=== PATIENT | female | born 1990 | race African-American/Black ===

== ENCOUNTER 2018-03-24 14:22 | Inpatient (IN) | payer OTHER, MEDICAID ==
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
[2018-03-24 19:22] LABS: PLATELET COUNT 261 10^3/uL (150-400)
[2018-03-24] MEDS ORDERED: POTASSIUM CL 20 MEQ/15 ML UDCUP PO ONE (19:38)
[2018-03-24] MEDS ORDERED: OLANZapine 10 MG/2 ML VIAL ONE (22:26)
[2018-03-24] MEDS ORDERED: OLANZapine 10 MG/2 ML VIAL IM ONE (22:35)
--- NOTE | 2018-03-24 23:04 | ASMTTLCEVL ---
[facility] Evaluation - Basic Information Evaluation Start Date and 03/24/2018 08:00 PM Time Hospital Status Answers: M1 Hold 72-hr M1 Hold Start Date 03/24/2018 04:54 PM and Time Patient statement Notes: "I feel like I'm at a crossroads, if I tell the truth my father will kill himself and I don't want him to " "My dad is running an experiment with his children and I'm the sacrificial pagan." Narrative Notes: PT is a 27 year old , employed single female. [facility]. [place] and did not know her name. PT's family was notified that she was here and her father, mother, brother and sister were present for part of this evaluation.Father of patient reported that PT moved back in with the family a few months ago after she broke up with her boyfriend of five years. She was upset, but going to work and interacting with the family. Over the past 2-3 days she had not been sleeping or eating and was up singing at 4 in the morning. PT reported that she believes she her father is a part of an experiment that he is using on his children but she did not say what he was doing. during the evaluation PT kept herself covered by a blanket, and was polite and articulate but did not feel safe uncovering her head. She stated that he has been hearing bagpipes that play Hitler's march and other voices and sound triggers that she didn't want to discuss. PT was unable to fill out BDI and BSS,she asked if she could fill them out tomorrow. PT's father said when she turned 22 he gave her a marijuana cookie and she "lost it" and this is like that time, but she didn't have any mariuajuna. Diagnosis History Notes: No diagnosis hisotry, [facility]. Prior suicide attempts Notes: Denies Prior hospitalizations Notes: None Treatment Responses Notes: None History of violence Notes: Denies Therapist: none Medications (name, dosage, route, freq uency) Notes: None Allergies/Reaction Notes: None Sleep Notes: Not sleeping much last 2-3 days, prior to that 8 hours. Appetite Notes: No appetite last 3-4 days, prior to that normal. Medical/Surgical history Notes: Denied any surgeries or other medical history. Substance use history (frequency, intensity, his tory, duration) Notes: Pt reported she on occasion has a beer. Does not smoke marijuana or take any other substances Family composition Notes: LIves with her younger brother and sister and her mother and father. Need for family Answers: Yes participation in patient's care Family psychiatric/substance abuse history Notes: Pt reported as did her father that he uses marijuana Also reported that mother heard voices but used meditation and it the voices stopped. Developmental history Notes: Normal Abuse concerns Answers: None Marital status/children Notes: Single no children. Living situation Notes: LIves with her younger brother and sister and her mother and father. Sexual history/orientation Notes: Heterosexual Peer support/family strengths Notes: PT reports she has one best friend. PT is smart, has a sense of humor, and is patient. Education level/history Notes: 3 years of college. Work history Notes: Works at a [employer] in [place]. Notes: None Legal Notes: Denies Episcopal/Spiritual Notes: Said she was raised Baptism. Leisure Notes: Said she likes music. Collateral Notes: Father was present for part of evaluation and provided information about PT's current status. [facility] Evaluation - Mental Status Exam Appearance: Answers: Bizarre Eye Contact: Answers: Absent Avoiding Mood: Answers: Irritable Sad Affect: Answers: Anxious Confused Guarded Behavior: Answers: Fearful Guarded Suspicious Speech: Answers: Flight of Ideas Thought Process: Answers: Tangential Insight: Answers: Poor Judgement: Answers: Poor Depression Answers: Crying Spells Signs/Symptoms: Worthlessness Anxiety Signs/Symptoms Answers: Panic Attacks Hallucinations: Answers: Auditory Delusions: Answers: Paranoid Ideation Pt reported to have Answers: No suicidal/self-injuring ideation/behavior? Pt reported to have Answers: No aggression/assault ideation/behavior? Pt reported to be making Answers: No aggression/assault threats? Pt exhibits inability to Answers: Yes care for self/grave disability? Ideation/behavior is Answers: No chronic? Patient has a specific Answers: No plan? Pt has access to means to Answers: No execute the plan? Ideation involves Answers: No serious/lethal intent? Ideation has Answers: Yes delusional/hallucinatory content? History of Answers: No suicidal/self-injuring ideation, behavior, or threats? History of Answers: No aggressive/assaultive ideation, behavior, or threats? History of serious Answers: No physical harm to self/others while in treatment setting? TLC Evaluation - Suicide/Homicide Risk Suicide Risk Factors: Answers: < 20 or > 40 Years of Age Psychotic Disorder None Current Suicidal Answers: No Ideation? Current Suicidal Ideation Answers: No in the Past 48 Hours? Suicide Internal Answers: Frustration Tolerance Protective Factors: Suicide External Answers: Social Support Protective Factors: Ranking of patient's Answers: Low suicidal risk: Ranking of patient's Answers: Low homicidal risk: TLC Evaluation - Wrap-up BDI Total Score: unable to fill out BDI Question #2 Score: unable to fill out BDI Question #9 Score: unable to fill out BSS Total Score: unable to fill ut AXIS I Diagnosis (include DSM-V and ICD-10 codes), must also be entered in [employer], which is the source of truth. Notes: BRIEF PSYCHOTIC DISORDER 298.8 (F23) Evaluation End Date and 03/24/2018 11:00 PM Time (HH:KARIN): Date Signed: 03/24/2018 11:03 PM Electronically Signed By:Kirstie Dorman
--- NOTE | 2018-03-24 23:08 | ASMTTCLDSP ---
TLC Discharge Disposition Disposition: Answers: Admit Disposition Notes: Notes: In consultation with ED physician Loraine Greer MD and on-call Psychiatrist Fritz Jj MD, both concurred that PT does appear to meet 27-65 criteria requiring inpatient hospitalization as PT does appear to be gravely disabled due to a mental illness condition. Discharge Concerns/Recommendations: Notes: PT will need to be admitted to an inpatient unit as soon as a bed is made available. Type of Hold: Answers: M1/72-hour Hold Hold initiated by: Answers: ED Physician Date Signed: 03/24/2018 11:07 PM Electronically Signed By:Kirstie Dorman
[2018-03-25] MEDS ORDERED: OLANZapine DISINTEGR 10 MG TAB PO ONE (08:00)
[2018-03-25] MEDS ORDERED: MAGNESIUM HYDROXIDE 30 ML UDCUP PO PRN (15:10)
[2018-03-25] MEDS ORDERED: MAG HYDROX/AL HYDROX/SIMETH 30 ML UDCUP PO PRN (15:10)
[2018-03-25] MEDS ORDERED: ACETAMINOPHEN 325 MG TAB PO PRN (15:10)
[2018-03-25] MEDS ORDERED: NICOTINE POLACRILEX 2 MG GUM B PRN (15:10)
[2018-03-25] MEDS ORDERED: OLANZapine DISINTEGR 10 MG TAB PO PRN (15:10)
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
[2018-03-25] MEDS: OLANZapine DISINTEGR 10 MG TAB PO SCH (21:15)
[2018-03-26] MEDS: OLANZapine DISINTEGR 10 MG TAB PO SCH ×2 (10:05→21:10)
--- NOTE | 2018-03-26 10:44 | PDMN ---
Medical Necessity Medical necessity: [facility] [place]: B011-IP other psychotic disorder- inpt care 3 days: Pt on M1 hold, gravely disabled, involuntary admission, auditory and visual hallucinations, delusions and disorganized behavior increasing over last several days. unable to care for self safely, high safety risk due to current psychosis.
[2018-03-26] MEDS ORDERED: TINIDAZOLE 500 MG TAB PO SCH (14:15)
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
--- NOTE | 2018-03-26 15:25 | SOAPPROG ---
SOAP Progress Note Assessment/Plan: Assessment: Unspecified psychosis. No improvement noted. (see subjective/objective note). Patient could benefit from continued inpatient hospitalization for crisis stabilization, safety, and medication evaluation. Plan: Review psychotropic medication treatment informed consent and recommendations. After reviewing risk and benefits, patient agrees to continue medications with the following changes. No medication changes at this time as more time is needed to determine ongoing tolerability and efficacy. Plan is to continue to observe patient for response and side effects from medications, and ongoing monitoring and evaluation. Next steps are for patient to meet with career development consultant to plan a safe discharge plan and establish outpatient services for ongoing treatment. Consider discharge next week if patient is in stable condition, safe, and has a safe discharge plan. PSYCHOTROPIC MEDICATION TREATMENT INFORMED CONSENT and RECOMMENDATIONS: Review nature of condition, diagnosis, and prognosis. Review nature and purpose of psychotropic medication treatment. Review type of psychotropic medications being ordered. Review risk and benefits of psychotropic medication treatment. Review probable length of time patient will need to take medications. Review risk and benefits of not undergoing psychotropic medication treatment. Review alternative treatments to psychotropic medications. Review psychotropic medications contraindications, drug-drug interactions, side effects, and importance of reporting any side effects to a psychiatric provider or nurse during inpatient hospitalization, and upon discharge to patients psychiatric outpatient provider, primary care provider, or other health career development engineer. Review importance of asking a nurse, psychiatric provider, or primary care provider any questions or problems concerning the psychotropic medications. Verify patient understands the information that has been provided, and understands, accepts, and agrees to psychotropic medications. Review patients safety plan and importance of patient to report to staff while hospitalized if patient is ever a danger to self/others, or unable to care for self, and upon discharge, the importance for patient to contact [facility] or [facility], or go to the nearest emergency room, if patient is ever a danger to self/others, or unable to care for self. Recommend that upon discharge patient establish medication management treatment with a psychiatric provider, establishes routine therapy appointments, and follow-up with primary care provider. Verify patient understands and agrees to these recommendations. 03/26/18 15:24 Subjective: Following up with patient for evaluation of psychosis and safety. CC: "I believe I am doing better. I am still hearing sounds." Patient reports she has a towel draped over her head because there are a lot of sensations on her head now that she is cold. Patient states she is at the hospital because she believes her dad did experiments on her and her siblings. She reports this testing as hypnosis. Patient reports she was [place] Patient reports she personally believes she is flushing something out of her system, and wants to know if we do urine samples and by doing a urine sample we can confirm or not confirm how she is doing. She reports she would like her family to visit. Patient reports auditory hallucinations, and reports medications are reducing auditory hallucinations. Patient reports no other psychiatric symptoms, reports she is not attending groups, reports she slept well last night, and was sleeping well prior to her admission. Patient reports improved appetite, reports she is taking medications as prescribed, tolerating medications with no report of side effects, reports she is not sure if she is having thoughts of suicide, and states she really wants to live. Objective: Vital Signs Temp Pulse Resp BP Pulse Ox 37.3 C 108 H 15 122/70 H 97 03/26/18 06:00 03/26/18 06:00 03/26/18 06:00 03/26/18 06:00 03/26/18 06:00 Consulted with treatment team staff for update on patients progress in treatment. Nurses report patient slept about 10 hours, is taking medications as prescribed with no report of side effects, reports auditory hallucinations, is not attending groups, and denies SI. Nurses report signs of psychosis including disorganized/bizarre behavior and patient reports of auditory hallucinations. The patient is a well-nourished, female, looking chronological age. Attire is inappropriate, dress is hospital garb and patient presents with towel draped over her head. Grooming status is appropriate. Ambulation is independent. Gait is normal. Posture is slumped. Eye contact is avoidant, looking at floor. Motor activity is underactive with no involuntary movements. Attitude is uncooperative and guarded. Patient appears disinterested, internally occupied, distractible, and does not relate well to this interviewer. Language production is unspontaneous. Rate is hesitant. Latency of response is prolonged with sad tone, and low volume, and amount is monosyllabic and mute at times. Articulation is mumbled. Patient reports mood as good with constricted affect. Patients thought process is non-linear and illogical, with loose associations, tangential thought, thought blocking, concrete thinking, Patient does not report suicidal/homicidal thoughts, ideas, or plans. Patient reports auditory, denies visual hallucinations. Patient denies delusions. Patient does appear to be attending to internal stimuli. ORIENTATION: x1 ATTENTION/CONCENTRATION: poor. INSIGHT: poor. JUDGMENT: poor. COGNITIVE: unable to appropriately assess at this time - Time Spent With Patient Time Spent With Patient: 30 minutes, met with patient individually. - Pending Discharge Pending Discharge Within 24 Hours: No Pending Discharge Within 48 Hours: No ICD10 Worksheet Patient Problems: Problems Problem Status Onset Unspecified psychosis Acute
--- NOTE | 2018-03-26 16:17 | ASMTBHMTP ---
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 I want to stay here." Patient's stated presenting problems: Notes: Per [facility] Evaluation, "The patient was found half naked by [facility] and did not know her name." Patient's goals for treatment: Notes: The patient stated, "to be away from my parents." Patient's strengths: Notes: The patient reported being "optimistic." Identify supports outside of hospital: Notes: The patient identified friends and family but reiterated that she doesn't want to utilize her family support. Initial disposition plan/considerations: Notes: She would like to stay with her friend, Anna rather than return home to family. Master Treatment Plan Required Signatures Psychiatrist signature: Answers: IRENE AbramsP: RN on-shift signature: Answers: RN: Patient signature: Answers: Patient: Date Signed: 03/26/2018 04:15 PM Electronically Signed By:Charlene Pillai
[2018-03-27] MEDS: LORazepam 0.5 MG TAB PO PRN (00:57)
[2018-03-27] MEDS: OLANZapine DISINTEGR 10 MG TAB PO SCH ×2 (10:41→21:54)
[2018-03-27] MEDS: TINIDAZOLE 500 MG TAB PO SCH (10:42)
--- NOTE | 2018-03-27 16:24 | SOAPPROG ---
SOAP Progress Note Assessment/Plan: Assessment: Unspecified psychosis. Slight improvement noted. (see subjective/objective note ). Patient could benefit from continued inpatient hospitalization for crisis stabilization, safety, and medication evaluation. Plan: Review psychotropic medication treatment informed consent and recommendations. After reviewing risk and benefits, patient agrees to continue current medications. No medication changes at this time as more time is needed to determine ongoing tolerability and efficacy. Plan is to continue to observe patient for response and side effects from medications, and ongoing monitoring and evaluation. Next steps are for patient to meet with rehab care assistant to plan a safe discharge plan and establish outpatient services for ongoing treatment. Consider discharge on next week if patient is in stable condition, safe, and has a safe discharge plan. PSYCHOTROPIC MEDICATION TREATMENT INFORMED CONSENT and RECOMMENDATIONS: Review nature of condition, diagnosis, and prognosis. Review nature and purpose of psychotropic medication treatment. Review type of psychotropic medications being ordered. Review risk and benefits of psychotropic medication treatment. Review probable length of time patient will need to take medications. Review risk and benefits of not undergoing psychotropic medication treatment. Review alternative treatments to psychotropic medications. Review psychotropic medications contraindications, drug-drug interactions, side effects, and importance of reporting any side effects to a psychiatric provider or nurse during inpatient hospitalization, and upon discharge to patients psychiatric outpatient provider, primary care provider, or other health rn patient care. Review importance of asking a nurse, psychiatric provider, or primary care provider any questions or problems concerning the psychotropic medications. Verify patient understands the information that has been provided, and understands, accepts, and agrees to psychotropic medications. Review patients safety plan and importance of patient to report to staff while hospitalized if patient is ever a danger to self/others, or unable to care for self, and upon discharge, the importance for patient to contact [facility] or [facility], or go to the nearest emergency room, if patient is ever a danger to self/others, or unable to care for self. Recommend that upon discharge patient establish medication management treatment with a psychiatric provider, establishes routine therapy appointments, and follow-up with primary care provider. Verify patient understands and agrees to these recommendations. 03/27/18 16:24 Subjective: Following up with patient for evaluation of psychosis and safety. "Going well, very well. Starting to know the patients names and becoming familiar with environment and excepting the situation she is in." Patients states she is like everyone else, that she needs help sometimes. She states how she reached out for help was dangerous, she describes she reached out for help by placing herself in a danger situation surrounded by too much stimulus. Patient states she has personal anger toward her dad. Then states she is playing out a storybook paradigm and went through that ditch with no clothes on and only a bra , and did that to try to fix everything. States she was following the matrix paradigm. She states she acted out this way as she was frustrated with herself. Patient states the whole truth is that she took the bus to [place] with some strange sandra, and they walked around the mall and he was polite and then he left. She states she then stayed downtown and wrote in her journal. Patient reports she feels like the TV is trying to send her personal messages sometimes, and then states she knows this probably cant be true. Patient reports the medications are making her think more clearly, and she is tolerating the medications with no report of side effects. Patient reports her mood as a little passionate and confused. Patient reports she is in between whether she is suicidal, she states sometime yes and sometimes no. Objective: Vital Signs Temp Pulse Resp BP Pulse Ox 36.7 C 117 H 18 135/80 H 95 03/27/18 06:00 03/27/18 06:00 03/27/18 06:00 03/27/18 06:00 03/27/18 06:00 Laboratory Results 03/26/18 Unknown Consulted with treatment team staff for update on patients progress in treatment. Nursing reports patient slept 8 hours, is engaged in her treatment, taking medications as prescribed, and reports no side effects. Nurses report bizarre and disorganized behavior. The patient is a well-nourished, well-developed, female, looking stated chronological age. Attire is appropriate, hospital garb, and is neat and clean. Grooming status is appropriate. Ambulation is independent. Gait is normal and coordinated. Posture is normal. Eye contact is excessive and staring. Motor activity is underactive. Attitude is cooperative, yet guarded. Patient appears distracted, and does not relate well to this interviewer. Language production is spontaneous. Rate is normal. Latency of response is appropriate. Articulation is clear. Patient reports mood as okay with congruent affect. Patients thought process is non-linear and illogical, with loose associations, tangential thought. Patient does report suicidal thoughts. Patient reports auditory, denies visual hallucinations. Patient denies delusions; however, has reported several delusions to this interviewer and staff. Patient does appear to be attending to internal stimuli. Patient is oriented to person, place, time, and absent to situation. Attention and concentration are poor. Insight is poor. Judgment is impaired. Patient does not report undesirable side effects from the medications. COGNITIVE FUNCTION: Retention / Recall: repeat back these numbers: able to repeat back 5 1 5 0 3 / 9 6 8 3 6 4 2 Abstractions: What does the statement Rolling stones gather no adan mean? "something about you being youthful, a stone is always moving, and always rolling, and the adan just wants to hang out and enjoy the sunlight, the adan wants to stay but the stone wants to go" How is an airplane similar to a bird? "actually, they are not similar; bird has a assistant to the director bone density; the plane, however, needs a running start, needs a runway" Memory: Remember these 3 items, ask to repeat back: Pin, Car, Duck. Judgement: If you were in a restaurant and heard a fire alarm go off, what would you do? "run away" If you found a stamped, sealed envelope on the side walk, what would you do with it? "return it to the store rn endoscopy" Orientation: Do you know where you are? "I know I cant talk to anyone, psychiatric [place]" Situation? - "I have attempted suicide, I didnt, I really didnt. I kept sneaking out of room 81 at the hospital." Doesn't remember how she go there. Memory: Repeat back 3 items asked to remember - pencil, car, duck Calculations: able to Count backwards by 3 starting from 100 Knowledge: Current president of the [place]? Before that? Raymundo Tam - Time Spent With Patient Time Spent With Patient: 30 minutes, met with patient individually. - Pending Discharge Pending Discharge Within 24 Hours: No Pending Discharge Within 48 Hours: No ICD10 Worksheet Patient Problems: Problems Problem Status Onset Unspecified psychosis Acute
[2018-03-28] MEDS: OLANZapine DISINTEGR 10 MG TAB PO SCH ×2 (10:32→22:38)
[2018-03-28] MEDS: TINIDAZOLE 500 MG TAB PO SCH (10:32)
--- NOTE | 2018-03-28 13:18 | SOAPPROG ---
SOAP Progress Note Assessment/Plan: Assessment: Unspecified psychosis. R/O bipolar disorder with psychosis. Slight improvement noted. (see subjective/objective note). Patient could benefit from continued inpatient hospitalization for crisis stabilization, safety, and medication evaluation. Plan: Review psychotropic medication treatment informed consent and recommendations. After reviewing risk and benefits, patient agrees to continue current medications. No medication changes at this time as more time is needed to determine ongoing tolerability and efficacy. Plan is to continue to observe patient for response and side effects from medications, and ongoing monitoring and evaluation. Next steps are for patient to meet with day care center director to plan a safe discharge plan and establish outpatient services for ongoing treatment. Consider discharge next week if patient is in stable condition, safe, and has a safe discharge plan. PSYCHOTROPIC MEDICATION TREATMENT INFORMED CONSENT and RECOMMENDATIONS: Review nature of condition, diagnosis, and prognosis. Review nature and purpose of psychotropic medication treatment. Review type of psychotropic medications being ordered. Review risk and benefits of psychotropic medication treatment. Review probable length of time patient will need to take medications. Review risk and benefits of not undergoing psychotropic medication treatment. Review alternative treatments to psychotropic medications. Review psychotropic medications contraindications, drug-drug interactions, side effects, and importance of reporting any side effects to a psychiatric provider or nurse during inpatient hospitalization, and upon discharge to patients psychiatric outpatient provider, primary care provider, or other health managed care coordinator. Review importance of asking a nurse, psychiatric provider, or primary care provider any questions or problems concerning the psychotropic medications. Verify patient understands the information that has been provided, and understands, accepts, and agrees to psychotropic medications. Review patients safety plan and importance of patient to report to staff while hospitalized if patient is ever a danger to self/others, or unable to care for self, and upon discharge, the importance for patient to contact [facility] or [facility], or go to the nearest emergency room, if patient is ever a danger to self/others, or unable to care for self. Recommend that upon discharge patient establish medication management treatment with a psychiatric provider, establishes routine therapy appointments, and follow-up with primary care provider. Verify patient understands and agrees to these recommendations. 03/28/18 13:17 Subjective: Following up with patient for evaluation of psychosis and safety. CC: Gradually feeling more at ease here, more trusting of the staff and accepting of my journey including the journey of the individuals around me. Patient states she is at the hospital because she felt like she was a danger to herself , states she still is not exactly sure why she is here. Patient requests this interviewer contact her parents to gather more information from them to better inform the treatment she is receiving while hospitalized. Patient reports voices and noises in her head are starting to fade out, improving. Patient reports she is taking medications as prescribed, and tolerating medications with no report of side effects. Patient reports she had restless sleep last night, and only slept 1-2 hours. Patient denies SI/HI and states she feels safe here. Objective: Vital Signs Temp Pulse Resp BP Pulse Ox 37.3 C 100 15 123/89 H 99 03/28/18 02:41 03/28/18 02:41 03/28/18 02:41 03/28/18 02:41 03/28/18 02:41 Laboratory Results 03/26/18 Unknown Consulted with treatment team staff for update on patients progress in treatment. Nurses report patient slept 2.5 hours, is taking medications as prescribed, and tolerating medications with no report of side effects. Nurses report patient continues bizarre and disorganized behavior, and is hyper- focused on somatic symptoms (e.g., pus from nose). The patient is a well-nourished, female, looking stated chronological age. Attire is appropriate. Grooming status is appropriate. Ambulation is independent. Gait is normal and coordinated. Posture is normal and relaxed. Eye contact is appropriate. Motor activity is appropriate and organized. Attitude is guarded. Patient appears distractible. Language production is unspontaneous. Rate is hesitant. Latency of response is prolonged with sad tone and low volume. Articulation is clear. Patient reports mood as euthymic with blunted affect. Patients thought process is non-linear and illogical, with loose associations, thought blocking. Patient does not report suicidal/homicidal thoughts, ideas, or plans. Patient denies auditory, visual hallucinations. Patient denies delusions. Patient does appear to be attending to internal stimuli. Orientation x3. Attention and concentration are poor. Insight and judgment are poor. Abstractions: What does the statement Rolling stones gather no adan? - adan wants to stay still, but the stone wants to keep going (no improvement) How is an airplane similar to a bird? - they can fly (improvement) - Time Spent With Patient Time Spent With Patient: 30 minutes, met with patient individually. - Pending Discharge Pending Discharge Within 24 Hours: No Pending Discharge Within 48 Hours: No ICD10 Worksheet Patient Problems: Problems Problem Status Onset Unspecified psychosis Acute
--- NOTE | 2018-03-28 15:09 | WOCRNPDOC ---
WOCRN Advanced Assessment Note - Skin Integrity Problem, Advanced Assess Left Anterior Lower Leg Dressing Type: Band Aid Dressing Description: Intact Exudate Amount: Minimal Exudate Color: Reddish/Yellow Exudate Characteristic(s): Sanguinopurulent Integumentary Issue Intervention: Dressing Changed Mar Wound Tissue: Intact Mar Wound Swelling: None Wound Bed Color: Red, Yellow Wound Bed Constitution: Red/[place] - Non Granular Tissue (60%), Adhered Slough (40 %) Wound Edges: Well Defined Site Odor: None Site Measurement - Head-to-Toe Length X Width X Depth (cm): 0.4cmx0.6cmx0.2cm Skin Integrity Problem Comment: Small, discrete wound on anterior aspect of LLE , w/ small amount of sanguinopurulent exudate noted when dressing removed. Unable to express any additional purulence from wound, and there is no appreciable fluctuance in surrounding tissues. No erythema or swelling observed , and patient denies pain to site. Will initiate anti-microbial dressing today, including [employer] collagen to fill the wound bed. clinical admissions managerCHENG Marcial present when dressing applied. Wound care supplies placed in a bin in the med room with patient's name written on the side. Wound care will follow up with patient next week.
[2018-03-28] MEDS: LORazepam 0.5 MG TAB PO PRN (16:13)
[2018-03-29] MEDS: OLANZapine DISINTEGR 10 MG TAB PO SCH ×2 (08:50→22:10)
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
[2018-03-30] MEDS: OLANZapine DISINTEGR 10 MG TAB PO SCH ×2 (08:42→21:44)
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
--- NOTE | 2018-03-30 16:08 | SOAPPROG ---
SOAP Progress Note Assessment/Plan: Assessment: Per Mitch Galdamez's note: Unspecified psychosis. R/O bipolar disorder with psychosis. Schizophrenia. Schizoaffective disorder. Slight improvement noted. (see subjective/objective note). Patient could benefit from continued inpatient hospitalization for crisis stabilization, safety, and medication evaluation. Plan: 03/30/18 16:03 1. Patient very psychotic. Believes her FOC is trying to "poison" her, and paranoid about FOC and male peers on unit. 2. Patient wearing ear plugs to block AH of "sounds." 3. Compliant with Zydis. 4. [facility] Subjective: Met with patient, reviewed chart and d/w staff. Patient remains very paranoid about her FOC trying to "poison" her b/c she blames him for giving her THC cookies for her birthday. She is also nervous and scared around male peers on unit. She thinks people are "watching" her on unit. She also reports hearing "sounds" and wants to wear earplugs to block the noise. Patient reports meds make her feel "drowsy" but is forcing herself to stay awake at night b/c she is scared something bad might happen if she goes to sleep. She denies any SI/HI. Objective: Vital Signs Temp Pulse Resp BP Pulse Ox 37.2 C 125 H 12 132/82 H 97 03/30/18 04:11 03/30/18 04:11 03/30/18 04:11 03/30/18 04:11 03/30/18 04:11 Laboratory Results 03/26/18 Unknown 03/29/18 03/30/18 03/31/18 05:59 05:59 05:59 Intake Total 700 1020 Balance 700 1020 MSE: Affect: Anxious Mood: "OK" TP: Disorganized TC: Reports AH of "sounds" no voices, denies VH, no SI/HI, very paranoid Insight/Judgment: Impaired - Time Spent With Patient Time Spent With Patient: 20" - Pending Discharge Pending Discharge Within 24 Hours: No Pending Discharge Within 48 Hours: No ICD10 Worksheet Patient Problems: Problems Problem Status Onset Unspecified psychosis Acute
[2018-03-31] MEDS: OLANZapine DISINTEGR 10 MG TAB PO SCH ×2 (08:35→21:13)
--- NOTE | 2018-03-31 15:24 | SOAPPROG ---
SOAP Progress Note Assessment/Plan: Assessment: Per Mitch Galdamez's note: Unspecified psychosis. R/O bipolar disorder with psychosis. Schizophrenia. Schizoaffective disorder. Slight improvement noted. (see subjective/objective note). Patient could benefit from continued inpatient hospitalization for crisis stabilization, safety, and medication evaluation. Plan: 03/30/18 16:03 1. Patient very psychotic. Believes her FOC is trying to "poison" her, and paranoid about FOC and male peers on unit. 2. Patient wearing ear plugs to block AH of "sounds." 3. Compliant with Zydis. 4. [facility] 03/31/18 15:20 1. Patient only slept 3.5 hrs last night, still worried about male peers on unit. 2. Patient doesn't want to return home, prefers to go live with [facility] in [place]. 3. Patient has numerous somatic delusions. 4. On [facility], compliant with meds. Subjective: Met with patient, reviewed chart and d/w staff. Patient tells MD she has "some health questions." She thinks she has pneumonia b/c she's "hot and cold" at night. Even when MD points out that patient doesn't have fever and no SOB, she doesn't believe MD. She has also been saving used facial tissues b/c she wants MD to "order some labs" on her "phlegm." Patient pulled a used tissue out of her pants' pocket for MD to test. MD reminded patient that for the sake of good hygiene, she should throw away tissues. MD assured patient that staff will continue to monitor her vital signs and sxs and let her know the most appropriate medical steps to take. Objective: Vital Signs Temp Pulse Resp BP Pulse Ox 36.7 C 114 H 16 138/87 H 99 03/31/18 06:00 03/31/18 06:00 03/31/18 06:00 03/31/18 06:00 03/31/18 06:00 Laboratory Results 03/26/18 Unknown 03/30/18 03/31/18 04/01/18 05:59 05:59 05:59 Intake Total 1020 920 750 Balance 1020 920 750 MSE: Affect: Flat Mood: "OK" TP: Disorganized, irrational, preoccupied TC: Denies SI/HI, no AH/VH, paranoid, somatic delusions Insight/Judgment: Impaired - Time Spent With Patient Time Spent With Patient: 25" - Pending Discharge Pending Discharge Within 24 Hours: No Pending Discharge Within 48 Hours: No ICD10 Worksheet Patient Problems: Problems Problem Status Onset Unspecified psychosis Acute
--- NOTE | 2018-03-31 15:27 | ASMTBHDC ---
Notes Note: Notes: Pt. was sitting on floor in hallway with peer pts. when CC approached. CC discussed having pt. sign a THOMAS for [facility]. Pt. was suspicious of form and requested to read the entire form. Pt. became confused about form stating it is valid for two years, pt. believed this meant the hospital wanted to keep her for two years. Pt. stated she does not want to sign the form today and would discuss it with CC tomorrow. Pt. end the conversation by walking away. Staff report pt attending groups, sleeping 3.5 hours last night and refusing a visit from her father yesterday. Date Signed: 03/31/2018 03:27 PM Electronically Signed By:Mary Sam
[2018-03-31] MEDS: LORazepam 0.5 MG TAB PO PRN (21:12)
[2018-04-01] MEDS: OLANZapine DISINTEGR 10 MG TAB PO SCH ×2 (08:34→21:18)
--- NOTE | 2018-04-01 12:02 | ASMTCMCOM ---
CM Note CM Note Notes: Pt. reports feeling "well rested, I needed it". Staff report pt. sleeping 8.5 hours. Pt. asked about the discharge process and what she needs to do to discharge. Pt. stated she was concerned if she had "flu symptoms when I came in". Pt. stated she thought she would have her blood drawn today, stating she wants her blood checked, adding she believes it will be helpful to staff to "know whats in my blood". Pt. denied SI, HI, and AVH. Pt. reported some paranoia a night, stating it "builds" through the day, and because "I have to go to bed alone". Pt. stated having a roommate has been helpful. Staff report pt. stating her AH have decreased with the medication. Pt. presents as alert, guarded, somewhat disorganized, with a mostly pleasant demeanor, and with fair eye contact. Date Signed: 04/01/2018 12:01 PM Electronically Signed By:Mary Sam
--- NOTE | 2018-04-01 13:18 | SOAPPROG ---
SOAP Progress Note Assessment/Plan: Assessment: Unspecified psychosis. R/O Schizophrenia. Schizoaffective disorder. Slight improvement noted. (see subjective/objective note). Patient could benefit from continued inpatient hospitalization for crisis stabilization, safety, and medication evaluation. Ongoing S/S psychosis, patient is showing some improvement; however, requires continued inpatient level of treatment in order to further stabilize to a level she can be safely discharged to outpatient level of treatment. Plan: Review psychotropic medication treatment informed consent and recommendations. After reviewing risk and benefits, patient agrees to continue current medications. No medication changes at this time as more time is needed to determine ongoing tolerability and efficacy. Plan is to continue to observe patient for response and side effects from medications, and ongoing monitoring and evaluation. Next steps are for patient to meet with hospice home care coordinator to plan a safe discharge plan and establish outpatient services for ongoing treatment. Consider discharge next week if patient is in stable condition, safe, and has a safe discharge plan. PSYCHOTROPIC MEDICATION TREATMENT INFORMED CONSENT and RECOMMENDATIONS: Review nature of condition, diagnosis, and prognosis. Review nature and purpose of psychotropic medication treatment. Review type of psychotropic medications being ordered. Review risk and benefits of psychotropic medication treatment. Review probable length of time patient will need to take medications. Review risk and benefits of not undergoing psychotropic medication treatment. Review alternative treatments to psychotropic medications. Review psychotropic medications contraindications, drug-drug interactions, side effects, and importance of reporting any side effects to a psychiatric provider or nurse during inpatient hospitalization, and upon discharge to patients psychiatric outpatient provider, primary care provider, or other health regular senior care provider. Review importance of asking a nurse, psychiatric provider, or primary care provider any questions or problems concerning the psychotropic medications. Verify patient understands the information that has been provided, and understands, accepts, and agrees to psychotropic medications. Review patients safety plan and importance of patient to report to staff while hospitalized if patient is ever a danger to self/others, or unable to care for self, and upon discharge, the importance for patient to contact [facility] or [facility], or go to the nearest emergency room, if patient is ever a danger to self/others, or unable to care for self. Recommend that upon discharge patient establish medication management treatment with a psychiatric provider, establishes routine therapy appointments, and follow-up with primary care provider. Verify patient understands and agrees to these recommendations. 04/01/18 13:20 Subjective: Following up with patient for evaluation of psychosis and safety. CC: "Getting better day by day, sounds are better and slept well last night." Patient reports taking medications as prescribed, tolerating medications with no report of side effects. Patient reports she slept better last night, is attending groups, and is engaging in her treatment. Patient agrees for this interviewer to meet with her dad to discuss her ongoing treatment. Objective: Vital Signs Temp Pulse Resp BP Pulse Ox 36.6 C 121 H 20 127/78 H 99 04/01/18 06:00 04/01/18 06:00 04/01/18 06:00 04/01/18 06:00 04/01/18 06:00 Laboratory Results 03/26/18 Unknown 03/31/18 04/01/18 04/02/18 05:59 05:59 05:59 Intake Total 920 1430 Balance 920 1430 Consulted with treatment team staff for update on patients progress in treatment. Nurses report patient slept 8.5 hours, is taking medications as prescribed, and tolerating medications with no report of side effects. Nurses report patient continues bizarre and disorganized behavior, and is hyper- focused on somatic complaints and these have been addressed by nursing and are somatic delusions. Patient continues to be unable to test reality. Nurses report some improvement notably: improved sleep and patient reports less AH with Zyprexa. Patient denies SI to nursing. Main S/S noted: somatic delusions, hallucinations (sounds), disorganized speech , grossly disorganized behavior, diminished emotional expression. Pertinent information from family meeting with patients father per patients request: father reports patient may have been admitted to [facility] sometime between [id number]. Patients father states patient is welcome to stay with him and her family when she is stable and safe to discharge. The patient is a well-nourished, female, looking stated chronological age. Attire is appropriate. Grooming status is appropriate. Ambulation is independent. Gait is normal and coordinated. Posture is normal and relaxed. Eye contact is appropriate. Motor activity is appropriate and organized. Attitude is guarded. Patient appears distractible. Language production is unspontaneous. Rate is hesitant. Latency of response is prolonged with sad tone and low volume. Articulation is clear. Patient reports mood as euthymic with blunted affect. Patients thought process is non-linear and illogical, with loose associations, thought blocking. Patient does not report suicidal/ homicidal thoughts, ideas, or plans. Patient denies auditory, visual hallucinations. Patient denies delusions. Patient does appear to be attending to internal stimuli. Orientation x3. Patient has no orientation to situation. Attention and concentration are poor. Insight and judgment are poor. - Time Spent With Patient Time Spent With Patient: 30 minutes, met with patient individually, and met with patient's father per patient's request. - Pending Discharge Pending Discharge Within 24 Hours: No Pending Discharge Within 48 Hours: No ICD10 Worksheet Patient Problems: Problems Problem Status Onset Unspecified psychosis Acute
[2018-04-02] MEDS: OLANZapine DISINTEGR 10 MG TAB PO SCH ×2 (08:21→21:17)
--- NOTE | 2018-04-02 10:45 | WOCRNPDOC ---
WOCRN Advanced Assessment Note - Skin Integrity Problem, Advanced Assess Left Anterior Lower Leg Dressing Type: Allevyn Life, Collagen (cali Ag+), Hydrofera Blue Ready Dressing Description: Clean/Dry, Intact Exudate Amount: Minimal Exudate Characteristic(s): Sanguinopurulent Integumentary Issue Intervention: Dressing Changed Wound Bed Constitution: Granulation Tissue (80%), Adhered Slough (20%) Wound Edges: Not Attached, Thick Site Measurement - Head-to-Toe Length X Width X Depth (cm): 0.4x0.6x0.2 Skin Integrity Problem Comment: Purulence build up found under the collagen. Rigo RN in room for dressing change. Encouraged her to clean and scub the wound bed well between dressing changes. No pus pocket found despite some pulence stuck under the cali. Collagen cali Ag+ placed in wound bed after cleaning and mechanical debridement. Covered with a small piece of HFB ready just to fit into wound. Covered with Allevyn life. Wound care will round again next week.
--- NOTE | 2018-04-02 10:49 | SOAPPROG ---
SOAP Progress Note Assessment/Plan: Assessment: Unspecified psychosis. R/O Schizophrenia. Schizoaffective disorder. Slight improvement noted. (see subjective/objective note). Patient could benefit from continued inpatient hospitalization for crisis stabilization, safety, and medication evaluation. Ongoing S/S psychosis, patient is showing some improvement; however, requires continued inpatient level of treatment to further stabilize to a level she can be safely discharged to lower level of treatment. Plan: Review psychotropic medication treatment informed consent and recommendations. After reviewing risk and benefits, patient agrees to continue current medications. No medication changes at this time as more time is needed to determine ongoing tolerability and efficacy. Plan is to continue to observe patient for response and side effects from medications, and ongoing monitoring and evaluation. Next steps are for patient to meet with care services manager to plan a safe discharge plan and establish outpatient services for ongoing treatment. Consider discharge next week if patient is in stable condition, safe, and has a safe discharge plan. PSYCHOTROPIC MEDICATION TREATMENT INFORMED CONSENT and RECOMMENDATIONS: Review nature of condition, diagnosis, and prognosis. Review nature and purpose of psychotropic medication treatment. Review type of psychotropic medications being ordered. Review risk and benefits of psychotropic medication treatment. Review probable length of time patient will need to take medications. Review risk and benefits of not undergoing psychotropic medication treatment. Review alternative treatments to psychotropic medications. Review psychotropic medications contraindications, drug-drug interactions, side effects, and importance of reporting any side effects to a psychiatric provider or nurse during inpatient hospitalization, and upon discharge to patients psychiatric outpatient provider, primary care provider, or other health rn homecare. Review importance of asking a nurse, psychiatric provider, or primary care provider any questions or problems concerning the psychotropic medications. Verify patient understands the information that has been provided, and understands, accepts, and agrees to psychotropic medications. Review patients safety plan and importance of patient to report to staff while hospitalized if patient is ever a danger to self/others, or unable to care for self, and upon discharge, the importance for patient to contact [facility] or [facility], or go to the nearest emergency room, if patient is ever a danger to self/others, or unable to care for self. Recommend that upon discharge patient establish medication management treatment with a psychiatric provider, establishes routine therapy appointments, and follow-up with primary care provider. Verify patient understands and agrees to these recommendations. 04/02/18 10:54 Subjective: Following up with patient for evaluation of psychosis and safety. Patient reports, "I brought this (honey container) in because it is something important to talk about. The finger prints." Patient reports her fingers prints are on the small plastic honey container, and this proves that she stole something. She describes that this proves she stole a life pack from a hospital. Patient states she is worried that she is going to go to alf because someone may find her fingerprints. She wants to give this interviewer the honey container because it has her finger prints on it. Regarding plans after discharge, patient reports, "paranoia is really high right now about being around family." Patient reports her dad gave her a brownie that was "very high potency of marijuana in it." Patient states her dad gave her this brownie when she was 22 years old. Patient states that after she ate the brownie she felt sick, dizzy, states she felt like everything around her was soft and fuzzy and states the TV was very vivid and describes it was like watching HD-TV. She describes feeling as though her vision was heightened. Patient reports after this experience she has been more paranoid and has had more thoughts of suicide. Patient reports taking current medications as prescribed, tolerating medications with no report of side effects. Patient states the Zyprexa is "warding off the sounds," and states she is no longer hearing sounds as much and that is why she no longer needs to wear ear plugs. Patient reports she slept well last night, is attending groups, and is engaging in her treatment. Objective: Vital Signs Temp Pulse Resp BP Pulse Ox 36.7 C 107 H 16 122/83 H 99 04/02/18 06:00 04/02/18 06:00 04/02/18 06:00 04/02/18 06:00 04/02/18 06:00 Laboratory Results 03/26/18 Unknown 04/01/18 04/02/18 04/03/18 05:59 05:59 05:59 Intake Total 1430 720 Balance 1430 720 Consulted with treatment team staff for update on patients progress in treatment. Nurses report patient slept 5.5 hours, is taking medications as prescribed, and tolerating medications with no report of side effects. Nurses report patient continues bizarre and disorganized behavior, and is hyper- focused on somatic complaints and these have been addressed by nursing and are somatic delusions. Patient continues to be unable to test reality. Nurses report some improvement notably: improved sleep and patient reports less AH with Zyprexa. Patient denies SI to nursing. The patient is a well-nourished, female, looking stated chronological age. Attire is appropriate. Grooming status is appropriate. Ambulation is independent. Gait is normal and coordinated. Posture is normal and relaxed. Eye contact is appropriate. Motor activity is appropriate and organized. Attitude is guarded. Patient appears distractible. Language production is unspontaneous. Rate is hesitant. Latency of response is prolonged with sad tone and low volume. Articulation is clear. Patient reports mood as euthymic with blunted affect. Patients thought process is non-linear and illogical, with loose associations, thought blocking. Patient does not report suicidal/ homicidal thoughts, ideas, or plans. Patient reports some auditory hallucinations (sounds), and denies visual hallucinations. Patient denies delusions. Patient does appear to be attending to internal stimuli. Orientation x3. Patient has no orientation to situation. Attention and concentration are poor. Insight and judgment are poor. - Time Spent With Patient Time Spent With Patient: 25 minutes, met with patient individually. - Pending Discharge Pending Discharge Within 24 Hours: No Pending Discharge Within 48 Hours: No ICD10 Worksheet Patient Problems: Problems Problem Status Onset Unspecified psychosis Acute
[2018-04-03] MEDS: LORazepam 0.5 MG TAB PO PRN (00:36)
[2018-04-03] MEDS: OLANZapine DISINTEGR 10 MG TAB PO SCH ×2 (08:21→20:27)
--- NOTE | 2018-04-03 10:56 | ASMTBHUR ---
Notes Note: Notes: I provider her with updated clinical and most recent doctor note this morning as well as explained the new process for UR's, etc. Client is "cert, approved through 04/04, with a review or discharge clinical needed on Thursday 04/05. 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
--- NOTE | 2018-04-03 11:38 | SOAPPROG ---
SOAP Progress Note Assessment/Plan: Assessment: Schizophrenia. Improvement noted (see subjective/objective note). Patient could benefit from continued inpatient hospitalization for crisis stabilization , safety, and medication evaluation. Ongoing S/S psychosis, patient is showing some improvement; however, requires continued inpatient level of treatment to further stabilize to a level she can be safely discharged to outpatient level of treatment. Plan: Review psychotropic medication treatment informed consent and recommendations. After reviewing risk and benefits, patient agrees to continue current medications. No medication changes at this time as more time is needed to determine ongoing tolerability and efficacy. Plan is to continue to observe patient for response and side effects from medications, and ongoing monitoring and evaluation. Next steps are for patient to meet with landcare facilitator to plan a safe discharge plan and establish outpatient services for ongoing treatment. Consider discharge next week if patient is in stable condition, safe, and has a safe discharge plan. PSYCHOTROPIC MEDICATION TREATMENT INFORMED CONSENT and RECOMMENDATIONS: Review nature of condition, diagnosis, and prognosis. Review nature and purpose of psychotropic medication treatment. Review type of psychotropic medications being ordered. Review risk and benefits of psychotropic medication treatment. Review probable length of time patient will need to take medications. Review risk and benefits of not undergoing psychotropic medication treatment. Review alternative treatments to psychotropic medications. Review psychotropic medications contraindications, drug-drug interactions, side effects, and importance of reporting any side effects to a psychiatric provider or nurse during inpatient hospitalization, and upon discharge to patients psychiatric outpatient provider, primary care provider, or other health memory care director. Review importance of asking a nurse, psychiatric provider, or primary care provider any questions or problems concerning the psychotropic medications. Verify patient understands the information that has been provided, and understands, accepts, and agrees to psychotropic medications. Review patients safety plan and importance of patient to report to staff while hospitalized if patient is ever a danger to self/others, or unable to care for self, and upon discharge, the importance for patient to contact [facility] or [facility], or go to the nearest emergency room, if patient is ever a danger to self/others, or unable to care for self. Recommend that upon discharge patient establish medication management treatment with a psychiatric provider, establishes routine therapy appointments, and follow-up with primary care provider. Verify patient understands and agrees to these recommendations. 04/03/18 11:37 Subjective: Following up with patient for evaluation of psychosis and safety. Patient reports, "My mood has improved." Patient reports less paranoia, and states "it still creeps in a little bit." Patient reports "thumbs-up for Zyprexa for me." She reports Zyprexa is quieting my mind, she states before she had it she thought other patients and staff were talking about her. States she was overall more paranoid before starting Zyprexa. 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 Objective: Vital Signs Temp Pulse Resp BP Pulse Ox 36.7 C 105 H 16 140/87 H 98 04/02/18 06:00 04/03/18 06:00 04/03/18 06:00 04/03/18 06:00 04/03/18 06:00 Laboratory Results 03/26/18 Unknown 04/02/18 04/03/18 04/04/18 05:59 05:59 05:59 Intake Total 720 1450 Balance 720 1450 Consulted with treatment team staff for update on patients progress in treatment. Nurses report patient slept 5.5 hours, is taking medications as prescribed, and tolerating medications with no report of side effects. Nurses report patient continues bizarre and disorganized behavior, and is hyper- focused on somatic complaints and these have been addressed by nursing and are somatic delusions. Patient continues to be unable to test reality. Nurses report some improvement notably: improved sleep and patient reports less AH with Zyprexa. Patient denies SI to nursing. The patient is a well-nourished, female, looking stated chronological age. Attire is appropriate. Grooming status is appropriate. Ambulation is independent. Gait is normal and coordinated. Posture is normal and relaxed. Eye contact is appropriate. Motor activity is appropriate and organized. Attitude is friendly. Patient appears attentive and relates well to this interviewer. Language production is spontaneous. R/R/V are normal. Patients thought process is linear and logical, with no loose associations, no thought blocking. Patient does not report suicidal/homicidal thoughts, ideas, or plans. Patient denies auditory hallucinations (sounds), and denies visual hallucinations. Patient reports slight paranoia. Patient does not appear to be attending to internal stimuli. Orientation x3. Attention and concentration are adequate. Insight and judgment are fair. - Time Spent With Patient Time Spent With Patient: 20 minutes, met with patient individually. - Pending Discharge Pending Discharge Within 24 Hours: No Pending Discharge Within 48 Hours: Yes Pending Discharge Date: 04/05/18 Pending Discharge Time: 11:00 ICD10 Worksheet Patient Problems: Problems Problem Status Onset Unspecified psychosis Acute
[2018-04-04] MEDS: OLANZapine DISINTEGR 10 MG TAB PO SCH ×2 (08:22→20:42)
--- NOTE | 2018-04-04 14:00 | SOAPPROG ---
SOAP Progress Note Assessment/Plan: Assessment: Schizophrenia. Improvement noted (see subjective/objective note). Patient could benefit from continued inpatient hospitalization for crisis stabilization , safety, and medication evaluation. Ongoing S/S psychosis (paranoia), patient is showing some improvement; however, requires continued inpatient level of treatment to further stabilize to a level she can be safely discharged to outpatient level of treatment. Plan: Review psychotropic medication treatment informed consent and recommendations. After reviewing risk and benefits, patient agrees to continue current medications with following changes: DC Ativan. No other medication changes at this time as more time is needed to determine ongoing tolerability and efficacy. Plan is to continue to observe patient for response and side effects from medications, and ongoing monitoring and evaluation. Next steps are for patient to meet with daycare teacher to plan a safe discharge plan and establish outpatient services for ongoing treatment. Consider discharge next week if patient is in stable condition, safe, and has a safe discharge plan. PSYCHOTROPIC MEDICATION TREATMENT INFORMED CONSENT and RECOMMENDATIONS: Review nature of condition, diagnosis, and prognosis. Review nature and purpose of psychotropic medication treatment. Review type of psychotropic medications being ordered. Review risk and benefits of psychotropic medication treatment. Review probable length of time patient will need to take medications. Review risk and benefits of not undergoing psychotropic medication treatment. Review alternative treatments to psychotropic medications. Review psychotropic medications contraindications, drug-drug interactions, side effects, and importance of reporting any side effects to a psychiatric provider or nurse during inpatient hospitalization, and upon discharge to patients psychiatric outpatient provider, primary care provider, or other health pediatric acute care unit nurse. Review importance of asking a nurse, psychiatric provider, or primary care provider any questions or problems concerning the psychotropic medications. Verify patient understands the information that has been provided, and understands, accepts, and agrees to psychotropic medications. Review patients safety plan and importance of patient to report to staff while hospitalized if patient is ever a danger to self/others, or unable to care for self, and upon discharge, the importance for patient to contact [facility] or [facility], or go to the nearest emergency room, if patient is ever a danger to self/others, or unable to care for self. Recommend that upon discharge patient establish medication management treatment with a psychiatric provider, establishes routine therapy appointments, and follow-up with primary care provider. Verify patient understands and agrees to these recommendations. 04/04/18 14:01 Subjective: Following up with patient for evaluation of psychosis and safety. Patient reports, "I am ready to discharge, feel much better." Patient expresses the following psychiatric symptoms mild anxiety. Patient reports she plans to return home with her family tomorrow. Patient states she plans to call her family today to let them know she will be discharging tomorrow. Objective: Vital Signs Temp Pulse Resp BP Pulse Ox 36.7 C 90 16 120/77 99 04/04/18 06:00 04/04/18 06:00 04/04/18 06:00 04/04/18 06:00 04/04/18 06:00 Laboratory Results 03/26/18 Unknown 04/03/18 04/04/18 04/05/18 05:59 05:59 05:59 Intake Total 1450 600 Balance 1450 600 NURSING REPORT: Consulted with nursing for update on patients progress in treatment. Nurses report patient is engaged in treatment, is attending groups, slept 8.5 hours, expresses the following psychiatric symptoms: mild anxiety, exhibits the following psychiatric symptoms: anxious, is eating all meals, is taking medications as prescribed with no report of side effects, with no S/S of EPS/akathisia, and denies SI/HI, A/V hallucinations. JUNIOR ASSISTANT MANAGER UPDATE: Reaching out to patients father to set-up family meeting and discharge planning. FAMILY MEETING: met with patient and patients father to discuss discharge plans for tomorrow at 1300. UPDATE: Patient is currently improving, tolerating Zyprexa Zydis 10 mg po BID with no reports of side effects, and with good response for psychosis symptoms. Patient shows continued treatment response as of today. Patient continues to exhibit signs of anxiety. The patient is a well-nourished, female, looking stated chronological age. Attire is appropriate. Grooming status is appropriate. Ambulation is independent. Gait is normal and coordinated. Posture is normal and relaxed. Eye contact is appropriate. Motor activity is appropriate and organized. Attitude is friendly. Patient appears attentive and relates well to this interviewer. Language production is spontaneous. R/R/V are normal. Patients thought process is linear and logical, with no loose associations, no thought blocking. Patient does not report suicidal/homicidal thoughts, ideas, or plans. Patient denies auditory hallucinations, and denies visual hallucinations. Patient reports slight paranoia (anxiety). Patient does not appear to be attending to internal stimuli. Orientation x3. Attention and concentration are adequate. Insight and judgment are fair. - Time Spent With Patient Time Spent With Patient: 30 minutes, met with patient and patient's father at patient's request to discuss discharge plans for tomorrow. - Pending Discharge Pending Discharge Within 24 Hours: Yes Pending Discharge Within 48 Hours: No Pending Discharge Date: 04/05/18 Pending Discharge Time: 11:00 ICD10 Worksheet Patient Problems: Problems Problem Status Onset Schizophrenia Acute
[2018-04-05 06:42] VITALS: BP 123/73
[2018-04-05] MEDS: OLANZapine DISINTEGR 10 MG TAB PO SCH (08:31)
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
== END 2018-04-05 11:35 | disposition home or self-care (01) | DRG 885 ==
LOC: EDBD 14:22 → BBEH 03-25 13:55 → MERGE 03-25 13:55 → BBEH 03-27 11:30
PROVIDERS: ADMIT Registered Nurse; ATTEND Registered Nurse
DX: F20.9 Schizophrenia, unspecified (principal); N76.0 Acute vaginitis; E87.6 Hypokalemia; J32.9 Chronic sinusitis, unspecified; R00.0 Tachycardia, unspecified; B96.89 Other specified bacterial agents as the cause of diseases classified elsewhere
CPT/HCPCS: 80305; G0480